=== PATIENT | female | born 1970 | race Caucasian/White ===

== ENCOUNTER → 2017-11-02 07:01 | Outpatient (CLI) | payer BC, SELFPAY ==
--- NOTE | 2017-11-02 11:16 | NEURO ---
NCS and/or EMG Patient Report Ordering Doctor: Mendoza Arceo DATE OF SERVICE: 11/02/17 This is a left upper extremity EMG and nerve conduction study performed on this 47-year-old female with a history of neck pain and pain in the shoulder. Remotely she did have carpal bone resection in her left wrist, however at this point she says that her hand is non-bothersome other than mild pain at the wrist. Left upper extremity sensory and motor nerve conduction study demonstrates mild prolongation of the median motor distal latency at the wrist with preservation of amplitude and conduction velocity. The median sensory responses normal. The ulnar motor and sensory and radial sensory responses normal and the median and ulnar F waves are preserved. Left upper extremity needle electromyography is performed. Muscles evaluated included the first dorsal interosseous, abductor pollicis brevis, brachioradialis, biceps, triceps and deltoid muscles. All muscles demonstrated normal insertional activity with absence of pathologic spontaneous activity. Motor unit potential recruitment pattern and amplitude was normal in all muscles tested. 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 No evidence of radiculopathy.
== END ==
PROVIDERS: Visit Provider Orthopaedic Surgery Orthopaedic Surgery of the Spine
DX: M47.812 Spondylosis without myelopathy or radiculopathy, cervical region (principal)
CPT/HCPCS: 95886; 95910

== ENCOUNTER 2020-05-30 16:30 | Outpatient (RCR) | payer BC, SELFPAY ==
--- NOTE | 2020-04-17 09:02 | HP.PTEVAL_ITS ---
Patient's Visit Information JODIE CHERRY is a 50 year old F referred to Physical Therapy by Dr. Josue Lechuga MD with a diagnosis of LOW BACK PAIN. Date of Evaluation: 04/17/20 Physical Therapist: Hilda Hussein PT, Cert MDT - Visit Plan Frequency: 2-3x /Week Duration: 4-6 Weeks Plan: AQUATIC THERAPY FOR PAIN RELIEF, POSTURE CORRECTION/STRENGTHENING, INSTRUCTION IN APPROPRIATE BODY MECHANICS AND ACTIVITY MODIFICATIONS. DLS STARTING WITH A NEUTRAL SPINE PROGRESSING ROM TOLERATED. EDILBERTO LE ROM, STRETCHING AND STRENGTHENING. HEP INSTRUCTION. 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 MACHINE IS TALL. PCP TOOK PATIENT OFF WORK ABOUT 10 DAYS AGO. TENTATIVE RTW DATE IS 05/05/20. Disability: NO. Present symptoms: LOW BACK PAIN THAT RADIATES DOWN INTO LEFT BUTTOCK, DOWN WHOLE LEG AND DOWN TO 2ND TOE. HASN'T REALLY FELT ANY NUMBNESS OR TINGLING. Present since: 1999 BUT STARTED GETTING WORSE ABOUT 9 MONTHS AGO AND PROGRESSIVELY HAS BECOME UNBEARABLE. RIGHT POSTERIOR THIGH AND CALF PAIN BUT NOT NEAR BAD THE LEFT. Pain Scale: WORST 9/10, LEAST 3/10. Currently: 8/10. Commenced as a result of: NO APPARENT REASON. CHANGED JOBS 3 WEEKS AGO BUT FLARE UP STATED BEFORE THAT. 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 WASN'T DOING PHYSICAL WORK DRIVING [employer] LIKE THE NEW JOB THOUGH. Symptoms at onset: LOW BACK. Worse: STANDING, SITTING, DRIVING, PICKING ANYTHING UP OFF THE FLOOR, LIFTING, DOING HAIR, GETTING UP OFF THE TOLIET, FOLDING CLOTHES. Better: LYING DOWN WITH PILLOWS. Disturbed sleep: YES. Previous history/Previous treatment: TWO LOW BACK SURGERIES 2011 AND 2014. FUSION BY DR. GARRETT REDDING. MARY'S WITH LAST INJECTION BEING ABOUT [address] TAYLOR. PT IN THE PAST BOTH BEFORE AND AFTER SURGERIES WITH SOME BENEFIT. Treatment this episode: WENT TO A SPINE SURGEON IN [facility] FOR A CONSULT IN NOVEMBER 2019. MRI, CAT SCAN AND X-RAYS WERE TAKEN AND PATIENT REPORTS THE SURGEON TOLD HER SHE NEEDS ANOTHER FUSION AND SHE ALSO NEEDS A FUSION IN HER NECK. TREMENDOUS ARM PAIN BUT BACK HURTS WORSE. IMAGAING LOOKS LIKE NECK IS A LOT WORSE THAN BACK. TREATMENT DELAYED DUE TO THE VIRUS AND HAS NOT BEEN BACK TO HIM. HAS GOT WORSE SINCE SEEING HIM. STATES SURGEON TOLD HER SHE COULD LIKE OTHER THINGS LIKE PT AND INJECTIONS TO PUT OFF THE SURGERY. TAKEN OFF WORK ABOUT 10 DAYS AGO. REFERRED TO PT. Coughing/sneezing/straining: NEGATIVE. Gait: TIME AND DISTANCE LIMITED. HAS TO LEAD WITH RIGHT LE UP STEPS. LIMPS ON LEFT LEG. WALKING SLOW CAN FEEL BETTER BUT HURTS LATER IF WALKS TOO MUCH. Difficulty initiating urinatin: NO. Accidents: NO. Unexplained weight loss: NO. Imaging: CAT SCAN, X-RAYS AND MRI APPROX NOVEMBER 2019 WITH RESULTS GIVEN TO PATIENT BY SURGEON AND BOTH CERVICAL AND LUMBAR FUSIONS HAVE BEEN RECOMMENDED. PMH: HYPOTHYROIDISM, SLEEP MEDICINE, HIGH CHOLESTEROL, SX TO REMOVE 5 BONES OUT OF LEFT WRIST, HYSTERECTOMY 2 YEARS AGO, EYE IMPLANT. NECK CONDITION NEEDING FUSION AND EFFECTING LUE. OTHER: CURRENTLY TAKING VICODIN AND ANTI- INFLAMMATORY ALONG WITH SLEEP MEDICINE DUE TO PAIN. - Objective Sitting/Standing Posture: POOR. Lordosis: REDUCED. Lateral shift: NO. Relevant shift: N/A. Active Correction of posture: WORSE. Other Observations: ANTALGIC GAIT AND TRANSFERS. DECREASED CADANCE. NO AD. DIFFICULTY TRANSITIONING FROM SIT TO STAND. Motor deficit: EDILBERTO LE'S GROSSLY 5/5 WITH MMT'ING. Sensory deficit: LLE HYPERSENSATIVIEY WITH LIGHT TOUCH TESTING. ROM deficit: TIGHT LLE HS'S AND CALF. Reflexes: UNABLE TO ELICIT EDILBERTO QUAD DTR'S BUT ACHILLES EDILBERTO 2/3. Dural Signs: POSITIVE LLE. Lumbar mvmt loss: flex - MOD. ext - SHAJI. R SG - SHAJI. L SG - SHAJI. Core strength: POOR. Palpation: TENDERNESS WITH PALPATION OF LUMBAR REGION WITH PALPATION REFERRING PAIN INTO LEFT BUTTOCK AND THIGH REGIONS - Goals Goal 1:: DECREASE C/O LOW BACK AND LE SX'S Goal Time Frame: 4-6 Weeks Goal 2:: IMPROVE PERSONAL CARE, LIFTING, WALKING, SITTING, STANDING, SLEEP, SOCIAL LIFE, TRAVEL AND EMPLOYMENT/HOMEMAKING [employer]. Goal Time Frame: 4-6 Weeks Goal 3:: INSTRUCT IN PROPHYLAXIS Goal Time Frame: 4-6 Weeks - Anticipated Interventions Patient/Client Instruction: Educate patient on: Condition, Plan of Care, Risk Factors, Benefits of Fitness Program For the Purpose of:: To improve self management Therapeutic Exercise to Include: Strength training, Body mechanics, Postural training, Flexibilty training, Neuromotor development, In an aquatic setting, Dynamic Lumbar Stabilization For the Purpose of:: To decrease pain, To increase ROM, To improve muscle performance and motor function, To increase tolerance to activity/condition/position, To improve ability of physical actions for home/community/work/leisure, To improve gait and locomotor functions TENS: Yes IF ES: Yes Cryotherapy (ice pack, ice massage): Yes Thermo therapy (hot pack): Yes Ultrasound (thermal/non thermal): Yes For the Purpose of:: To decrease pain, To decrease swelling/inflammation, To improve nutrient delivery to tissue Thank you for the opportunity to evaluate your patient. For Medicare and Medicare HMO plans, please review the plan of care and approve it. It will need to be FAXED BACK to us at [phone] for Medicare purposes. For Medicare only, by signing this I certify the plan of care. Please let me know if there are questions or concerns regarding this plan of care. Physician Signature: Date:
--- NOTE | 2020-05-05 17:48 | HP.PTREVAL ---
Dr. Josue Lechuga MD, It has been my pleasure to treat JODIE CHERRY over the last 14 visits for LOW BACK PAIN. Please see the progress note below for an update on the physical therapy plan of care! Subjective: PATIENT REPORTS SHE CALLED AND SCHEDULED A SURGICAL FOLLOW UP BECAUSE SHE CAN NOT GO ON LIKE THIS IF IT DOESN'T IMPROVE MORE. FIRST TIME SHE CAN GET IN TO SEE DR. BECKWITH JUN 05 2020. PATIENT REPORTS SHE IS A BIT BETTER SINCE STARTING AQUATIC THERAPY AND SHE HAS SOME HOPE THAT IT CAN HELP AND SHE WANTS TO KEEP TRYING IT UNTIL SHE GETS IN TO SEE DR. BECKWITH. 2ND TOE FEELS BETTER. Objective/Function: BRIEF EXAM: ASSESSMENT OF PROGRESS AND APPROPRIATENESS OF CONTINUING PT. NO SIGNIFICANT CHANGES SINCE INITIAL EVAL BUT PATEINT HAS ONLY HAD ABOUT 3 POOL SESSIONS AND SHE HAS A BIT LESS PAIN AND DENIES ANY WORSENING SINCE STARTING PT. SHE IS A GOOD CANDIDATE TO CONTINUE TO TRY AQUATIC THERAPY PER POC BELOW UNTIL SURGICAL CONSULT. Plan Plan: *RTW 05/19/20. *CONTINUE AQUATIC THERAPY FOR PAIN RELIEF, POSTURE CORRECTION/STRENGTHENING, INSTRUCTION IN APPROPRIATE BODY MECHANICS AND ACTIVITY MODIFICATIONS. DLS STARTING WITH A NEUTRAL SPINE PROGRESSING ROM TOLERATED. EDILBERTO LE ROM, STRETCHING AND STRENGTHENING. HEP INSTRUCTION. Goals Goal 1:: DECREASE C/O LOW BACK AND LE SX'S Goal Time Frame: 4-6 Weeks Goal Progress: Progressing Goal 2:: IMPROVE PERSONAL CARE, LIFTING, WALKING, SITTING, STANDING, SLEEP, SOCIAL LIFE, TRAVEL AND EMPLOYMENT/[employer]AKING [employer]. Goal Time Frame: 4-6 Weeks Goal Progress: Not Progressing Goal 3:: INSTRUCT IN PROPHYLAXIS Goal Time Frame: 4-6 Weeks Goal Progress: Not Progressing Anticipated Interventions Patient/Client Instruction: Educate patient on: Condition, Plan of Care, Risk Factors, Benefits of Fitness Program For the Purpose of:: To improve self management Therapeutic Exercise to Include: Strength training, Body mechanics, Postural training, Flexibilty training, Neuromotor development, In an aquatic setting, Dynamic Lumbar Stabilization For the Purpose of:: To decrease pain, To increase ROM, To improve muscle performance and motor function, To increase tolerance to activity/condition/position, To improve ability of physical actions for home/community/work/leisure, To improve gait and locomotor functions TENS: Yes IF ES: Yes Cryotherapy (ice pack, ice massage): Yes Thermo therapy (hot pack): Yes Ultrasound (thermal/non thermal): Yes For the Purpose of:: To decrease pain, To decrease swelling/inflammation, To improve nutrient delivery to tissue Please do not hesitate to contact me at [phone] by phone or if you have questions or concerns regarding this new plan of care! Sincerely, Hilda Hussein, PT, Cert MDT
--- NOTE | 2020-05-30 16:50 | HP.PTDCSUM_ITS ---
It has been my pleasure to treat JODIE CHERRY referred by Dr. Josue Lechuga MD, with the diagnosis of LOW BACK PAIN for a total of 19 visit(s). Discharge Date: Please see the following information for a summary of their discharge status. Subjective: PATIENT REPORTS SHE IS A LITTLE BIT BETTER. THE PAIN IS BECOMING A LITTLE MORE MANAGEABLE. PATIENT RELATES THE IMPROVEMENT TO STRETCHING. PATIENT REPORTS SHE THINKS THE POOL EX'S AND ACTIVITIES ARE HELPING TOO. HANGING IN THE DEEP END REALLY RELIEVES THE PRESSURE ON HER LEG. GOING TO SEE THE SURGEON NEXT TUESDAY. STATES SHE IS STILL 90% SURE SHE IS GOING TO TELL HIM TO GO AHEAD WITH THE SURGERY. Lumbar Spine Pain Intensity (Out of 10): 7 LLE Pain Intensity (Out of 10): 8 Cerv. Spine Pain Intensity (Out of 10): 8 LUE Pain Intensity (Out of 10): 5 % Improvement: 20 Objective/Function: PATIENT WAS SEEN TODAY FOR RE-ASSESSMENT OF PROGRESS TOWARD THE SET PT GOALS AND THE NEED FOR FURTHER PHYSICAL THERAPY VS READINESS FOR DISCHARGE. PATIENT IS NO WORSE BUT HAS ONLY MADE MINIMAL PROGRESS WITH PT AND IS APPROPRIATE FOR PHYSICIAN RE-ASSESSMENT AT THIS POINT. UPON EXAM TODAY: Sitting/Standing Posture: POOR. Lordosis: REDUCED. Lateral shift: NO. Relevant shift: N/A. Active Correction of posture: WORSE. Other Observations: ANTALGIC GAIT AND TRANSFERS. DECREASED CADANCE. NO AD. LESS DIFFICULTY TR ANSITIONING FROM SIT TO STAND COMPARED TO INITIAL EVAL. Motor deficit: EDILBERTO LE'S GROSSLY 5/5 WITH MMT'ING. Sensory deficit: LLE HYPERSENSATIVIEY WITH LIGHT TOUCH TESTING. ROM deficit: TIGHT LLE HS'S AND CALF. Reflexes: UNABLE TO ELICIT EDILBERTO QUAD DTR'S BUT ACHILLES EDILBERTO 2/3. Dural Signs: POSITIVE LLE. Lumbar mvmt loss: flex - MOD - INCREASED PAIN UPON RETURN AND FLEX'ING. ext - MOD - LBP AND PAIN INTO LEFT BUTTOCK AND POST THIGH. R SG - SHAJI - PAIN IN LEFT HIP. L SG - MOD - NE. Core strength: POOR. Palpation: PATIENT IS NOT TENDER WITH PALPATION OF THE LUMBAR REGION TODAY. Goal 1:: DECREASE C/O LOW BACK AND LE SX'S Goal Progress: Progressing Goal 2:: IMPROVE PERSONAL CARE, LIFTING, WALKING, SITTING, STANDING, SLEEP, SOCIAL LIFE, TRAVEL AND EMPLOYMENT/HOMEMAKING [employer]. Goal Progress: Not Progressing Goal 3:: INSTRUCT IN PROPHYLAXIS Goal Progress: Not Progressing Plan: D/C. PATIENT AGREEABLE If there are questions or concerns regarding this patient's physical therapy, please feel free to call me at [phone]. Thank you for the referral of this patient. Sincerely, Hilda Hussein, PT, Cert MDT
== END 2020-05-30 19:00 | disposition home or self-care (01) ==
LOC: PT 16:30
PROVIDERS: PCP Internal Medicine; Referring Provider Internal Medicine; Visit Provider Internal Medicine
DX: M54.5 Low back pain (principal)
CPT/HCPCS: 97113; 97162; 97164